=== PATIENT | female | born 1985 | race Caucasian/White ===

== ENCOUNTER 2017-07-18 17:20 | Emergency (ER) | payer SELFPAY ==
[~2017-07-18] VITALS: Ht 167.6 cm; Wt 65.0 kg
[~2017-07-18 17:20] MED LIST: MEDR10 PO; XANA1TAB6 PO
[2017-07-18 17:27] VITALS: BP 154/70; PULSE 81; RESP 18; TEMP 99.1; O2SAT 100
[2017-07-18] MEDS ORDERED: SODIUM CHLOR 0.9% 1000 ML INJ 1,000 ML IV SCH (17:36)
[2017-07-18] MEDS ORDERED: NUVAMIS VAGINAL (17:40)
[2017-07-18 17:41] LABS: BILIRUBIN, URINE NEG (NEG); BLOOD, URINE TRACE (NEG); GLUCOSE,URINE NEG (NEG); KETONE, URINE NEG (NEG); NITRITE,URINE NEG (NEG); PH, URINE 5.5 (5.0-8.5); URINE COLOR YELLOW (YELLW/STRAW); URINE LEUKOCYTE ESTERASE NEG (NEG)
[2017-07-18] MEDS ORDERED: SODIUM CHLORIDE 0.9% FLUSH 10 ML FLUSH IV FLUSH PRN (17:45)
[2017-07-18] MEDS ORDERED: MORPHINE SULFATE 8 MG/ML INJ IV PUSH ONE (17:45)
[2017-07-18 17:46] LABS: MUCUS URINE FEW /lpf (OCC)
[2017-07-18 17:47] LABS: BACTERIA, URINE RARE /hpf
[2017-07-18] MEDS ORDERED: DIATRIZOATE MEGLUM/DIATRIZOATE SOD 9 ML CUP ONE (17:54)
[2017-07-18 17:55] LABS: AUTOMATED NEUTROPHIL # 4.8 TH/MM3 (1.8-7.7); BASOPHIL # 0.1 TH/MM3 (0-0.2); BASOPHIL % 0.9 % (0.0-2.0); EOSINOPHIL # 0.1 TH/MM3 (0-0.4); EOSINOPHIL % 1.8 % (0.0-4.0); HEMATOCRIT 38.2 % (35.0-46.0); HEMOGLOBIN 12.9 GM/DL (11.6-15.3); LYMPH % 23.3 % (9.0-44.0); LYMPHOCYTE # 1.7 TH/MM3 (1.0-4.8); MEAN CELL VOLUME 95.6 FL (80.0-100.0); MEAN CORPUSCULAR HEMOGLOBIN 32.2 PG (27.0-34.0); MEAN CORPUSCULAR HGB CONC 33.7 % (32.0-36.0); MEAN PLATELET VOLUME 7.2 FL (7.0-11.0); MONO % 6.5 % (0.0-8.0); MONOCYTE # 0.5 TH/MM3 (0-0.9); NEUT % 67.5 % (16.0-70.0); PLATELET COUNT 286 TH/MM3 (150-450); RED CELL DISTRIBUTION WIDTH 14.4 % (11.6-17.2); WHITE BLOOD COUNT 7.2 TH/MM3 (4.0-11.0)
--- NOTE | 2017-07-18 17:55 | PD ---
HPI Chief Complaint: Abdominal Pain Time Seen by Provider: 17:36 Travel History International Travel<30 days: No Contact w/Intl Traveler<30days: No Traveled to known affect area: No History of Present Illness HPI The patient is 32 years old. She arrives to the ER with a complaint of abdominal pain. She notes it to be in the right lower quadrant in the epigastrium. Dr Gray referred the patient here to rule out appendicitis. She notes the pain is been present for about 3 weeks. Her appetite is been decreased. She is also had nausea and vomiting. She denies fever. No abnormal vaginal bleeding or discharge. Last menstruation 3 weeks ago. Patient reports a history of gallbladder stones however no history of cholecystectomy or appendectomy. PFSH Past Medical History Asthma: Yes Diminished Hearing: No Immunizations Current: Yes Influenza Vaccination: No ?: Not LMP: 3 WEEKS : 0 Past Surgical History Tonsillectomy: Yes Tympanostomy Tube: Yes Other Surgery: Yes (ADENOIDECTOMY) Social History Alcohol Use: Yes (SOCIALLY) Tobacco Use: Yes (02/28 PPD) Substance Use: No Allergies-Medications (Allergen,Severity, Reaction): Coded Allergies: amoxicillin (Unverified Allergy, Intermediate, ITCHING/NAUSEA, 07/18/17) Reported Meds & Prescriptions Reported Meds & Active Scripts Active Hydrocodone-Acetaminophen 7.5 Mg-325 Mg Tab 2 Tab PO Q6H PRN Reported Nuvaring Vaginal Insert (Etonogestrel-Ethinyl Estradiol Vaginal Insert) 0.120- 0.015 Mg/24 Hr Vagring 1 Applic VAGINAL DIRECTED Review of Systems Except as stated in HPI: all other systems reviewed are Neg General / Constitutional: No: Fever Eyes: No: Diploplia Physical Exam Narrative GENERAL: Pleasant 32-year-old female well-nourished well-developed mild distress secondary to pain Vital Signs Date Time Temp Pulse Resp B/P (MAP) Pulse Ox O2 Delivery O2 Flow Rate FiO2 07/18/17 17:27 99.1 81 18 154/70 (98) 100 SKIN: Warm and dry. HEAD: Atraumatic. Normocephalic. EYES: Pupils equal and round. No scleral icterus. No injection or drainage. ENT: No nasal bleeding or discharge. Mucous membranes pink and moist. NECK: Trachea midline. No JVD. CARDIOVASCULAR: Regular rate and rhythm. RESPIRATORY: No accessory muscle use. Clear to auscultation. Breath sounds equal bilaterally. GASTROINTESTINAL: Soft. Tenderness palpation right lower quadrant pain and generally. MUSCULOSKELETAL: Extremities without clubbing, cyanosis, or edema. No obvious deformities. NEUROLOGICAL: Awake and alert. No obvious cranial nerve deficits. Motor grossly within normal limits. Five out of 5 muscle strength in the arms and legs. Normal speech. PSYCHIATRIC: Appropriate mood and affect; insight and judgment normal. Data Data Last Documented VS Vital Signs Date Time Temp Pulse Resp B/P (MAP) Pulse Ox O2 Delivery O2 Flow Rate FiO2 07/18/17 18:15 18 07/18/17 18:07 100 Room Air 07/18/17 17:27 99.1 81 154/70 (98) Orders Orders Urinalysis - C+S If Indicated (07/18/17 17:32) Ed Urine Pregnancytest Poc (07/18/17 17:32) Complete Blood Count With Diff (07/18/17 17:36) Comprehensive Metabolic Panel (07/18/17 17:36) Lipase (07/18/17 17:36) Ct Abd/Pel W Iv Contrast(Rout) (07/18/17 17:36) Iv Access Insert/Monitor (07/18/17 17:36) Ecg Monitoring (07/18/17 17:36) Oximetry (07/18/17 17:36) Sodium Chlor 0.9% 1000 Ml Inj (Ns 1000 M (07/18/17 17:36) Sodium Chloride 0.9% Flush (Ns Flush) (07/18/17 17:45) Morphine Inj (Morphine Inj) (07/18/17 17:45) Oral Contrast - Adult (07/18/17 17:48) Diatrizoate Liq ( [place] Liq) (07/18/17 17:54) Iohexol 350 Inj (Omnipaque 350 Inj) (07/18/17 18:54) Ed Discharge Order (07/18/17 19:25) Ed Discharge Order (07/18/17 19:26) Labs Laboratory Tests Test 07/18/17 17:35 07/18/17 17:45 Urine Collection Type CLEAN CATCH Urine Color YELLOW Urine Turbidity CLEAR Urine pH 5.5 Urine Specific [place] GREATER/EQUAL 1.030 Urine Protein NEG mg/dL Urine Glucose (UA) NEG mg/dL Urine Ketones NEG mg/dL Urine Occult Blood TRACE Urine Nitrite NEG Urine Bilirubin NEG Urine Urobilinogen 0.2 MG/DL Urine Leukocyte Esterase NEG Urine WBC 3-5 /hpf Urine Squamous Epithelial Cells 6-8 /hpf Urine Bacteria RARE /hpf Urine Mucus FEW /lpf Microscopic Urinalysis Comment CULT NOT INDICATED Urine Collection Time 17:35 White Blood Count 7.2 TH/MM3 Red Blood Count 4.00 MIL/MM3 Hemoglobin 12.9 GM/DL Hematocrit 38.2 % Mean Corpuscular Volume 95.6 FL Mean Corpuscular Hemoglobin 32.2 PG Mean Corpuscular Hemoglobin Concent 33.7 % Red Cell Distribution Width 14.4 % Platelet Count 286 TH/MM3 Mean Platelet Volume 7.2 FL Neutrophils (%) (Auto) 67.5 % Lymphocytes (%) (Auto) 23.3 % Monocytes (%) (Auto) 6.5 % Eosinophils (%) (Auto) 1.8 % Basophils (%) (Auto) 0.9 % Neutrophils # (Auto) 4.8 TH/MM3 Lymphocytes # (Auto) 1.7 TH/MM3 Monocytes # (Auto) 0.5 TH/MM3 Eosinophils # (Auto) 0.1 TH/MM3 Basophils # (Auto) 0.1 TH/MM3 CBC Comment DIFF FINAL Differential Comment Blood Urea Nitrogen 9 MG/DL Creatinine 0.81 MG/DL Random Glucose 91 MG/DL Total Protein 7.4 GM/DL Albumin 3.6 GM/DL Calcium Level 8.8 MG/DL Alkaline Phosphatase 57 U/L Aspartate Amino Transf (AST/SGOT) 28 U/L Alanine Aminotransferase (ALT/SGPT) 35 U/L Total Bilirubin 0.7 MG/DL Sodium Level 137 MEQ/L Potassium Level 3.8 MEQ/L Chloride Level 105 MEQ/L Carbon Dioxide Level 21.5 MEQ/L Anion Gap 11 MEQ/L Estimat Glomerular Filtration Rate 83 ML/MIN Lipase 189 U/L [facility] Medical Decision Making Medical Screen Exam Complete: Yes Emergency Medical Condition: Yes Medical Record Reviewed: Yes Differential Diagnosis Constipation, Gastritis, Acute Cholecystitis, Biliary Colic, Pancreatitis, FRANCO , Hepatitis, Bowel Obstruction, Cystitis, Mesenteric Ischemia, AAA, Appendicitis , Renal Stone/Hydronephrosis, GERD, perforated viscous Narrative Course CBC & BMP Diagram 07/18/17 17:45 Total Protein 7.4, Albumin 3.6, Calcium Level 8.8, Alkaline Phosphatase 57, Aspartate Amino Transf (AST/SGOT) 28, Alanine Aminotransferase (ALT/SGPT) 35, Total Bilirubin 0.7 Lipase normal UA no UTI U preg negative Diagnosis Primary Impression: Abdominal pain Qualified Codes: R10.9 - Unspecified abdominal pain Referrals: Brittney Rome MD call for appointment Med/Other Pt SpecificInfo: Prescription(s) given Scripts Hydrocodone-Acetaminophen (Hydrocodone-Acetaminophen) 7.5 Mg-325 Mg Tab 2 TAB PO Q6H Y for PAIN SCALE 6 TO 10, #15 TAB 0 Refills Prov: Magdy Roman MD 07/18/17 Disposition: DISCHARGE HOME Condition: Stable Magdy Roman MD July 18, 2017 17:55
[2017-07-18 18:03] LABS: CHLORIDE 105 MEQ/L (98-107); SODIUM (NA) 137 MEQ/L (136-145)
[2017-07-18 18:06] LABS: CALCIUM 8.8 MG/DL (8.5-10.1)
[2017-07-18 18:07] VITALS: RESP 18; O2SAT 100
[2017-07-18 18:07] LABS: ALBUMIN 3.6 GM/DL (3.4-5.0); BICARBONATE 21.5 MEQ/L (21.0-32.0); BLOOD UREA NITROGEN 9 MG/DL (7-18); GLUCOSE,RANDOM 91 MG/DL (74-106)
[2017-07-18 18:09] LABS: ALT (GPT) 35 U/L (10-53); AST (GOT) 28 U/L (15-37)
[2017-07-18 18:10] LABS: CREATININE 0.81 MG/DL (0.50-1.00); GLOMERULAR FILTRATION RATE 83 ML/MIN (>89)
[2017-07-18 18:11] LABS: TOTAL BILIRUBIN ADULT 0.7 MG/DL (0.2-1.0); TOTAL PROTEIN 7.4 GM/DL (6.4-8.2)
[2017-07-18 18:12] LABS: ALKALINE PHOSPHATASE 57 U/L (45-117)
[2017-07-18 18:15] VITALS: RESP 18
[2017-07-18] MEDS ORDERED: IOHEXOL 350 MG/ML 10 ML VIAL (for RAD DIAG) IVCONTRAST ONE (18:54)
--- NOTE | 2017-07-18 19:11 | RADRPT ---
EXAM DATE: 07/18/2017 6:55 PM EDT AGE/SEX: 32 years / Female INDICATIONS: Right lower quadrant pain. Nausea, vomiting and diarrhea. CLINICAL DATA: This is the patient's initial encounter. Patient reports that signs and symptoms have been present for 2 weeks and indicates a pain score of 7/10. MEDICAL/SURGICAL HISTORY: . Asthma. None. ORAL CONTRAST: Prescribed oral contrast ingested. RADIATION DOSE: 6.90 CTDI (mGy) COMPARISON: No prior [place] exams available for comparison. TECHNIQUE: Multiple contiguous axial images were obtained through the abdomen and pelvis following b olus infusion of 90 ml Omnipaque 350 (iohexol) nonionic water-soluble contrast as a single exam dos e. Prescribed oral contrast ingested. Using automated exposure control and adjustment of the mA and/ or kV according to patient size, the radiation dose was kept as low as reasonably achievable to obtai n optimal diagnostic quality images. FINDINGS: Lower Lungs: The visualized lower lungs are clear. Liver: The liver has a homogeneous density without space-occupying lesion. There is no dilation of th e biliary tree. No calcified gallstones. Spleen: Homogeneous density without enlargement. Pancreas: Unremarkable without mass or calcification. Kidneys: Normal in size and shape. No evidence of mass or hydronephrosis. No calcified renal stones. Adrenal Glands: Unremarkable. Aorta: The aorta and proximal iliac vessels are grossly unremarkable without aneurysmal dilation. Bowel/Mesentery: The bowel loops are grossly unremarkable. The cecum and sigmoid colon have a normal configuration. The appendix is identified in the right lower quadrant and has a normal size and appe arance. Abdominal Wall: Intact. Retroperitoneum: No evidence of adenopathy in the retrocrural, para-aortic, or deep pelvic regions. Bladder: Contours are smooth. Reproductive Organs: No abnormal masses or calcifications seen. Pessary in place. Inguinal: The inguinal region is unremarkable without evidence of adenopathy. Bony Structures: Unremarkable. CONCLUSION: 1. Negative CT abdomen/pelvis with contrast. Electronically signed by: Andre Youngblood MD 07/18/2017 7:09 PM EDT
[2017-07-18] MEDS ORDERED: HYDR-3580 PO (19:17)
[2017-07-18 19:41] VITALS: BP 136/84
== END 2017-07-18 20:15 | disposition home or self-care (01) ==
LOC: PHED 17:20
DX: R10.31 Right lower quadrant pain (principal); R11.2 Nausea with vomiting, unspecified; J45.909 Unspecified asthma, uncomplicated; Z72.0 Tobacco use
CPT/HCPCS: 74177; 80053; 81001; 83690; 84703; 85025; 96361; 96374; 99285; J2270; J7030; Q9963; Q9967